=== PATIENT | male | born 1970 | race Two or more races ===

== ENCOUNTER 2018-09-10 00:36 | Emergency (ER) | payer SELFPAY ==
[~2018-09-10] VITALS: Ht 177.8 cm; Wt 90.7 kg
--- NOTE | 2018-09-10 00:40 | NUR ---
PT BIBRA AFTER UNWITTNESSED SEIZURE. PT STATES "THIS HAS BEEN HAPPENING EVERY DAY FOR THE PAST WEEK". PT DENIES CHEST PAIN, SOB, N/V/D, HEADACHE, DIZZINESS. PT AAOX4. RESPIRATIONS EVEN AND UNLABORED. SKIN WARM AND INTACT. NO ACUTE DISTRESS NOTED. WILL CONTINUE TO MONITOR
--- NOTE | 2018-09-10 00:50 | NUR ---
MD AT BEDSIDE FOR EVALUATION
[2018-09-10 01:05] LABS: BASOPHILS # (AUTO) 0.1 /CMM (0.0-0.2); BASOPHILS % (AUTO) 0.9 % (0.0-2.0); EOSINOPHILS % (AUTO) 4.4 % (0.0-6.0); HEMATOCRIT 46 % (39-51); HEMOGLOBIN 16.1 g/dL (13.5-17.5); LYMPHOCYTES # (AUTO) 3.2 /CMM (0.8-4.8); LYMPHOCYTES % (AUTO) 30.5 % (20.0-44.0); MEAN CORPUSCULAR HGB CONC 35 g/dl (31.0-36.0); MEAN CORPUSCULAR VOLUME 93 fL (80-96); MONOCYTES # (AUTO) 0.9 /CMM (0.1-1.30); MONOCYTES % (AUTO) 8.9 % (2.0-12.0); NEUTROPHILS # (AUTO) 5.8 /CMM (1.8-8.9); NEUTROPHILS % (AUTO) 55.3 % (43.0-81.0); PLATELET COUNT (AUTO) 211 /CMM (150-450); RED BLOOD CELL COUNT(AUTO) 5.02 MIL/uL (4.5-6.0); WHITE BLOOD COUNT (AUTO) 10.4 K/uL (4.3-11.0)
[2018-09-10 01:15] LABS: CALCIUM, SERUM 8.4 mg/dL (8.5-10.1); CARBON DIOXIDE 24 mmol/L (21-32); CHLORIDE 105 mmol/L (98-107); GLUCOSE 91 mg/dL (74-106); POTASSIUM 3.8 mmol/L (3.5-5.1); SODIUM SERUM 141 mmol/L (136-145); UREA NITROGEN, BLOOD 23 mg/dL (7-18)
[2018-09-10 01:19] LABS: PHENOBARBITAL 24 ug/ml (15-39); PHENYTOIN (DILANTIN) 12.8 ug/ml (10.0-20.0)
[2018-09-10 01:20] LABS: ALANINE AMINOTRANSFERASE 25 U/L (12-78); ALBUMIN 3.4 g/dL (3.4-5.0); ALCOHOL, BLOOD < 3 mg/dL (0-0); ALKALINE PHOSPHATASE 88 U/L (46-116); ASPARTATE AMINOTRANSFERASE 16 U/L (15-37); BILIRUBIN,DIRECT 0.1 mg/dL (0.0-0.2); BILIRUBIN,TOTAL 0.2 mg/dL (0.2-1.0); TOTAL PROTEIN, SERUM 7.4 g/dL (6.4-8.2)
[2018-09-10] MEDS ORDERED: PHENYTOIN EXTENDED RELEASE 100 MG CAPSULE PO ONE ×2 (02:30→02:46)
--- NOTE | 2018-09-10 02:58 | NUR ---
PT REFUSED DILANTIN MEDICATION. PT STATES "THAT DOES NOT LOOK LIKE THE SAME KIND OF PILL THAT I HAVE. THAT'S GENERIC AND WHAT CAUSES MY SEIZURES. I'M NOT TAKING THAT". OPENED MEDICATION PACKAGE IN FRONT OF PT AND ASSURED PT MEDICATION IS THE SAME. PT STILL REFUSED. AWARE
--- NOTE | 2018-09-10 03:10 | NUR ---
Pt ambulatory with a steady gait. Patient discharged to home in stable condition. Written and verbal after care instructions given. Patient verbalizes understanding of instruction.
--- NOTE | 2018-09-10 03:13 | NUR ---
PT STATES "I WILL WAIT IN THE WAITING ROOM FOR CERTIFIED LOW VISION THERAPIST"
[2018-09-10 03:14] VITALS: BP 125/86
== END 2018-09-10 03:14 | disposition home or self-care (01) ==
LOC: ER 00:39
DX: G40.909 Epilepsy, unspecified, not intractable, without status epilepticus (principal); I10 Essential (primary) hypertension; F41.9 Anxiety disorder, unspecified; Z76.5 Malingerer [conscious simulation]; Z59.0 Homelessness; Z95.818 Presence of other cardiac implants and grafts; Z88.5 Allergy status to narcotic agent
CPT/HCPCS: 36415; 80048-TC; 80076-TC; 80184; 80185-TC; 85025-TC; G0480